=== PATIENT | female | born 1935 | race Two or more races ===

== ENCOUNTER 2017-06-23 06:56 | Outpatient (CLI) | payer OTHER ==
[~2017-06-23 06:56] MED LIST: ATARAX25 MG PO; CARDIZEM120 MG PO; ECZEMA ANTI-I28.3 GM TP; MEDROLPACK PO; PAXIL40 MG PO; SIMVASTATIN40 MG PO
== END 2017-06-23 08:18 | disposition home or self-care (01) ==
LOC: LAB 06:56
DX: E03.8 Other specified hypothyroidism (principal); E78.2 Mixed hyperlipidemia; I11.9 Hypertensive heart disease without heart failure; E56.8 Deficiency of other vitamins; N39.0 Urinary tract infection, site not specified; Z12.11 Encounter for screening for malignant neoplasm of colon; E55.9 Vitamin D deficiency, unspecified; E11.9 Type 2 diabetes mellitus without complications

== ENCOUNTER 2017-08-28 11:55 | Emergency (ER) | payer OTHER ==
[~2017-08-28] VITALS: Ht 160 cm; Wt 68.9 kg
== END 2017-08-28 13:47 | disposition home or self-care (01) ==
LOC: ER 11:55
DX: R20.0 Anesthesia of skin (principal)

== ENCOUNTER 2017-09-08 10:12 | Outpatient (CLI) | payer OTHER | END 2017-09-08 11:00 | disposition home or self-care (01) | LOC: NUCLEAR 10:12 | DX: I49.8 Other specified cardiac arrhythmias (principal); I11.9 Hypertensive heart disease without heart failure; I68.2 Cerebral arteritis in other diseases classified elsewhere ==

== ENCOUNTER 2017-09-09 14:09 | Outpatient (CLI) | payer OTHER | END 2017-09-09 16:01 | disposition home or self-care (01) | LOC: NUCLEAR 14:09 | DX: I65.23 Occlusion and stenosis of bilateral carotid arteries (principal) ==

== ENCOUNTER 2017-10-05 15:06 | Emergency (ER) | payer OTHER ==
[~2017-10-05] VITALS: Ht 157.5 cm; Wt 73.5 kg
[2017-10-05] MEDS ORDERED: SYNTHROID50 MCG (15:29)
== END 2017-10-05 17:38 | disposition home or self-care (01) ==
LOC: ER 15:06
DX: J45.998 Other asthma (principal); J06.9 Acute upper respiratory infection, unspecified; J11.1 Influenza due to unidentified influenza virus with other respiratory manifestations

== ENCOUNTER 2017-11-01 07:20 | Outpatient (CLI) | payer OTHER ==
[~2017-11-01 07:20] MED LIST changes: +SYNTHROID50 MCG
== END 2017-11-01 08:00 | disposition home or self-care (01) ==
LOC: NUCLEAR 07:20
DX: I11.9 Hypertensive heart disease without heart failure (principal); I25.10 Atherosclerotic heart disease of native coronary artery without angina pectoris
CPT/HCPCS: 78452; 93017; A9500; J0153

== ENCOUNTER 2017-12-30 08:49 | Inpatient (IN) | payer OTHER ==
[~2017-12-30] VITALS: Ht 157.5 cm; Wt 72.6 kg
[2018-01-04] MEDS ORDERED: CIPRO500 MG PO (12:44)
[2018-01-04] MEDS ORDERED: PAXIL40 MG PO (12:44)
[2018-01-04] MEDS ORDERED: SYNTHROID50 MCG PO (12:44)
[2018-01-04] MEDS ORDERED: INTESTINEX680 M1 PO (12:44)
[2018-01-04] MEDS ORDERED: PEPCID20 MG PO (12:44)
[2018-01-04] MEDS ORDERED: CARDIZEM120 MG PO (12:44)
[2018-01-04] MEDS ORDERED: SIMVASTATIN40 MG PO (12:44)
[2018-01-04] MEDS ORDERED: FLAGYL500MG PO (12:44)
[2018-01-04] MEDS ORDERED: PROPRANOLOL HCL10 MG PO (12:44)
== END 2018-01-04 15:54 | disposition home or self-care (01) | DRG 378 ==
LOC: ER 08:49 → SEC-K 14:35 → SURH 22:27 → SEC-K 22:32 → SURH 12-31 18:21
PROC: BW20ZZZ Computerized Tomography (CT Scan) of Abdomen (ICD-10-PCS; principal; 2017-12-30)
DX: K62.5 Hemorrhage of anus and rectum (principal); K57.32 Diverticulitis of large intestine without perforation or abscess without bleeding; K52.89 Other specified noninfective gastroenteritis and colitis; B96.29 Other Escherichia coli [E. coli] as the cause of diseases classified elsewhere; E03.8 Other specified hypothyroidism; I11.9 Hypertensive heart disease without heart failure; E78.49 Other hyperlipidemia; K44.9 Diaphragmatic hernia without obstruction or gangrene; G25.0 Essential tremor; E78.00 Pure hypercholesterolemia, unspecified; F32.9 Major depressive disorder, single episode, unspecified; Z90.49 Acquired absence of other specified parts of digestive tract

== ENCOUNTER 2018-04-20 07:13 | Outpatient (CLI) | payer OTHER ==
[~2018-04-20 07:13] MED LIST changes: +CIPRO500 MG PO; +FLAGYL500MG PO; +INTESTINEX680 M1 PO; +PEPCID20 MG PO; +PROPRANOLOL HCL10 MG PO; +SYNTHROID50 MCG PO
== END 2018-04-20 16:02 | disposition home or self-care (01) ==
LOC: LAB 07:13
DX: D50.8 Other iron deficiency anemias (principal); E03.8 Other specified hypothyroidism; E78.2 Mixed hyperlipidemia; I11.9 Hypertensive heart disease without heart failure; E56.8 Deficiency of other vitamins; N39.0 Urinary tract infection, site not specified; Z12.11 Encounter for screening for malignant neoplasm of colon; R19.5 Other fecal abnormalities; E55.9 Vitamin D deficiency, unspecified; N19 Unspecified kidney failure; E11.9 Type 2 diabetes mellitus without complications; R80.8 Other proteinuria; C18.0 Malignant neoplasm of cecum; B99.8 Other infectious disease

== ENCOUNTER 2018-08-14 06:46 | Outpatient (CLI) | payer OTHER | END 2018-08-14 07:03 | disposition home or self-care (01) | LOC: LAB 06:46 | DX: E03.8 Other specified hypothyroidism (principal); D50.8 Other iron deficiency anemias; E78.2 Mixed hyperlipidemia; I11.9 Hypertensive heart disease without heart failure; E56.8 Deficiency of other vitamins; N39.0 Urinary tract infection, site not specified; Z12.11 Encounter for screening for malignant neoplasm of colon; E55.9 Vitamin D deficiency, unspecified; N19 Unspecified kidney failure; E11.9 Type 2 diabetes mellitus without complications; R80.8 Other proteinuria; C18.0 Malignant neoplasm of cecum; K92.1 Melena ==

== ENCOUNTER 2018-09-08 11:22 | Outpatient (CLI) | payer OTHER | END 2018-09-08 11:30 | disposition home or self-care (01) | LOC: LAB 11:22 | DX: E53.8 Deficiency of other specified B group vitamins (principal) ==

== ENCOUNTER 2018-09-18 10:02 | Emergency (ER) | payer OTHER ==
[~2018-09-18] VITALS: Ht 160 cm; Wt 77.1 kg
[2018-09-18] MEDS ORDERED: ATIVAN1 M1 PO (10:16)
== END 2018-09-18 14:34 | disposition home or self-care (01) ==
LOC: ER 10:02
DX: S00.12XA Contusion of left eyelid and periocular area, initial encounter (principal); S00.83XA Contusion of other part of head, initial encounter; W01.198A Fall on same level from slipping, tripping and stumbling with subsequent striking against other object, initial encounter; Y93.89 Activity, other specified; Y92.012 Bathroom of single-family (private) house as the place of occurrence of the external cause; Y99.8 Other external cause status

== ENCOUNTER 2018-11-28 07:37 | Outpatient (CLI) | payer OTHER ==
[~2018-11-28 07:37] MED LIST changes: +ATIVAN1 M1 PO
== END 2018-11-28 07:47 | disposition home or self-care (01) ==
LOC: LAB 07:37
DX: D50.8 Other iron deficiency anemias (principal); E03.8 Other specified hypothyroidism; E78.2 Mixed hyperlipidemia; I11.9 Hypertensive heart disease without heart failure; E56.8 Deficiency of other vitamins; N39.0 Urinary tract infection, site not specified; Z12.11 Encounter for screening for malignant neoplasm of colon; E55.9 Vitamin D deficiency, unspecified; N19 Unspecified kidney failure; E11.9 Type 2 diabetes mellitus without complications; R80.8 Other proteinuria; C18.0 Malignant neoplasm of cecum; K92.1 Melena

== ENCOUNTER → 2019-02-06 12:36 | Outpatient (CLI) | payer OTHER | END | disposition home or self-care (01) | LOC: LAB 12:36 | DX: J11.1 Influenza due to unidentified influenza virus with other respiratory manifestations (principal) ==

== ENCOUNTER 2019-03-02 07:20 | Outpatient (CLI) | payer OTHER | END 2019-03-02 07:28 | disposition home or self-care (01) | LOC: LAB 07:20 | DX: D50.8 Other iron deficiency anemias (principal); E03.8 Other specified hypothyroidism; E78.2 Mixed hyperlipidemia; I11.9 Hypertensive heart disease without heart failure; E56.8 Deficiency of other vitamins; N39.0 Urinary tract infection, site not specified; Z12.11 Encounter for screening for malignant neoplasm of colon; E55.9 Vitamin D deficiency, unspecified; N19 Unspecified kidney failure; E11.9 Type 2 diabetes mellitus without complications; R80.8 Other proteinuria; C18.0 Malignant neoplasm of cecum; K92.1 Melena ==

== ENCOUNTER 2019-06-07 08:01 | Outpatient (CLI) | payer OTHER | END 2019-06-07 15:00 | disposition home or self-care (01) | LOC: LAB 08:01 | DX: D50.8 Other iron deficiency anemias (principal); E03.8 Other specified hypothyroidism; E78.2 Mixed hyperlipidemia; I11.9 Hypertensive heart disease without heart failure; E56.8 Deficiency of other vitamins; N39.0 Urinary tract infection, site not specified; Z12.11 Encounter for screening for malignant neoplasm of colon; E55.9 Vitamin D deficiency, unspecified; N19 Unspecified kidney failure; E11.9 Type 2 diabetes mellitus without complications; R80.8 Other proteinuria; C18.0 Malignant neoplasm of cecum; K92.1 Melena ==

== ENCOUNTER 2019-06-08 10:55 | Outpatient (CLI) | payer OTHER | END 2019-06-08 11:04 | disposition home or self-care (01) | LOC: LAB 10:55 | DX: D50.8 Other iron deficiency anemias (principal); E03.8 Other specified hypothyroidism; E78.2 Mixed hyperlipidemia; I11.9 Hypertensive heart disease without heart failure; E56.8 Deficiency of other vitamins; N39.0 Urinary tract infection, site not specified; Z12.11 Encounter for screening for malignant neoplasm of colon; E55.9 Vitamin D deficiency, unspecified; N19 Unspecified kidney failure; E11.9 Type 2 diabetes mellitus without complications; R80.8 Other proteinuria; C18.0 Malignant neoplasm of cecum; K92.1 Melena ==

== ENCOUNTER 2019-07-06 10:39 | Emergency (ER) | payer OTHER ==
[~2019-07-06] VITALS: Ht 160 cm; Wt 72.6 kg
[2019-07-06] MEDS ORDERED: ASA81 MG (10:58)
[2019-07-06] MEDS ORDERED: PAXIL40 MG PO (10:59)
== END 2019-07-06 17:07 | disposition home or self-care (01) ==
LOC: ER 10:39
DX: R19.5 Other fecal abnormalities (principal); K57.30 Diverticulosis of large intestine without perforation or abscess without bleeding; N20.0 Calculus of kidney; R53.1 Weakness; F41.8 Other specified anxiety disorders

== ENCOUNTER → 2019-08-24 08:25 | Outpatient (CLI) | payer OTHER ==
[~2019-08-24 08:25] MED LIST changes: +ASA81 MG
== END | disposition home or self-care (01) ==
LOC: LAB 08:25
DX: G31.84 Mild cognitive impairment of uncertain or unknown etiology (principal)

== ENCOUNTER 2019-09-03 08:57 | Inpatient (IN) | payer OTHER ==
[~2019-09-03] VITALS: Ht 160 cm; Wt 70.3 kg
[2019-09-05] MEDS ORDERED: CARDIZEM120 MG PO (18:14)
[2019-09-05] MEDS ORDERED: POM (MEDICAMENTO EN PO (18:14)
[2019-09-05] MEDS ORDERED: FLAGYL500MG PO (18:14)
[2019-09-05] MEDS ORDERED: CIPRO500 MG PO (18:14)
[2019-09-05] MEDS ORDERED: PAXIL40 MG PO (18:14)
[2019-09-05] MEDS ORDERED: PEPCID AC20 MG PO (18:14)
[2019-09-05] MEDS ORDERED: SINEMET 25-1001 EACH PO (18:14)
[2019-09-05] MEDS ORDERED: SYNTHROID50 MCG PO (18:14)
[2019-09-05] MEDS ORDERED: INTESTINEX680 M2 PO (18:14)
[2019-09-05] MEDS ORDERED: TAMS0.4C PO (18:19)
== END 2019-09-05 18:31 | disposition home or self-care (01) | DRG 389 ==
LOC: ER 08:57 → SEC-K 15:16 → SURH 18:55
PROVIDERS: ADMIT Internal Medicine Geriatric Medicine; ATTEND Internal Medicine Geriatric Medicine
PROC: BW21ZZZ Computerized Tomography (CT Scan) of Abdomen and Pelvis (ICD-10-PCS; principal; 2019-09-03)
DX: K56.0 Paralytic ileus (principal); N20.1 Calculus of ureter; E86.0 Dehydration; N20.0 Calculus of kidney; F32.9 Major depressive disorder, single episode, unspecified; E03.8 Other specified hypothyroidism; E78.5 Hyperlipidemia, unspecified; G20 Parkinson's disease; I10 Essential (primary) hypertension

== ENCOUNTER 2019-09-24 09:45 | Day surgery (SDC) | payer OTHER ==
[~2019-09-24 09:45] MED LIST changes: +ARICEPT10 MG PO; +CARDIZEM; +ESTAZOLAM2 MG PO; +INTESTINEX680 M2 PO; +PEPCID AC20 MG PO; +POM (MEDICAMENTO EN PO; +SINEMET 25-1001 EACH PO; +TAMS0.4C PO
== END 2019-09-24 16:45 | disposition home or self-care (01) ==
LOC: CIR.AMB 09:45
PROVIDERS: ATTEND Urology
DX: N20.1 Calculus of ureter (principal); Z20.828 Contact with and (suspected) exposure to other viral communicable diseases

== ENCOUNTER 2019-10-03 10:26 | Outpatient (CLI) | payer OTHER | END 2019-10-03 10:40 | disposition home or self-care (01) | LOC: MRI 10:26 | PROVIDERS: ATTEND Psychiatry & Neurology Neurology | DX: G20 Parkinson's disease (principal); I10 Essential (primary) hypertension; G31.84 Mild cognitive impairment of uncertain or unknown etiology | CPT/HCPCS: 70551 ==

== ENCOUNTER 2019-10-10 07:19 | Outpatient (CLI) | payer OTHER | END 2019-10-10 07:31 | disposition home or self-care (01) | LOC: LAB 07:19 | PROVIDERS: ATTEND Internal Medicine Geriatric Medicine | DX: D50.8 Other iron deficiency anemias (principal); E03.8 Other specified hypothyroidism; E78.2 Mixed hyperlipidemia; I11.9 Hypertensive heart disease without heart failure; E56.8 Deficiency of other vitamins; N39.0 Urinary tract infection, site not specified; Z12.11 Encounter for screening for malignant neoplasm of colon; E55.9 Vitamin D deficiency, unspecified; N19 Unspecified kidney failure; E11.9 Type 2 diabetes mellitus without complications; R80.8 Other proteinuria; C18.0 Malignant neoplasm of cecum; K92.1 Melena ==

== ENCOUNTER → 2019-10-13 07:13 | Outpatient (CLI) | payer OTHER | END | disposition home or self-care (01) | LOC: LAB 07:13 | PROVIDERS: ATTEND Internal Medicine Geriatric Medicine | DX: D50.8 Other iron deficiency anemias (principal); E03.8 Other specified hypothyroidism; E78.2 Mixed hyperlipidemia; I11.9 Hypertensive heart disease without heart failure; E56.8 Deficiency of other vitamins; N39.0 Urinary tract infection, site not specified; Z12.11 Encounter for screening for malignant neoplasm of colon; E55.9 Vitamin D deficiency, unspecified; N19 Unspecified kidney failure; E11.9 Type 2 diabetes mellitus without complications; R80.8 Other proteinuria; C18.0 Malignant neoplasm of cecum; K92.1 Melena ==

== ENCOUNTER 2020-01-03 08:26 | Outpatient (CLI) | payer OTHER | END 2020-01-03 08:39 | disposition home or self-care (01) | LOC: LAB 08:26 | PROVIDERS: ATTEND Internal Medicine Geriatric Medicine | DX: D50.8 Other iron deficiency anemias (principal); E03.8 Other specified hypothyroidism; E78.2 Mixed hyperlipidemia; I11.9 Hypertensive heart disease without heart failure; E56.8 Deficiency of other vitamins; N39.0 Urinary tract infection, site not specified; Z12.11 Encounter for screening for malignant neoplasm of colon; E55.9 Vitamin D deficiency, unspecified; N19 Unspecified kidney failure; K92.1 Melena; C18.0 Malignant neoplasm of cecum; R80.8 Other proteinuria; E11.9 Type 2 diabetes mellitus without complications ==

== ENCOUNTER 2020-03-10 08:47 | Outpatient (CLI) | payer OTHER | END 2020-03-10 08:58 | disposition home or self-care (01) | LOC: LAB 08:47 | PROVIDERS: ATTEND Psychiatry & Neurology Neurology | DX: E03.8 Other specified hypothyroidism (principal); M06.4 Inflammatory polyarthropathy; G21.4 Vascular parkinsonism; I63.81 Other cerebral infarction due to occlusion or stenosis of small artery; E11.9 Type 2 diabetes mellitus without complications; E53.8 Deficiency of other specified B group vitamins; E78.1 Pure hyperglyceridemia; E58 Dietary calcium deficiency ==

== ENCOUNTER 2020-03-18 09:43 | Outpatient (CLI) | payer OTHER | END 2020-03-18 09:59 | disposition home or self-care (01) | LOC: TOM 09:43 | PROVIDERS: ATTEND Psychiatry & Neurology Neurology | DX: R41.89 Other symptoms and signs involving cognitive functions and awareness (principal); G21.4 Vascular parkinsonism; R44.1 Visual hallucinations ==

== ENCOUNTER 2020-05-02 07:37 | Outpatient (CLI) | payer OTHER | END 2020-05-02 07:41 | disposition home or self-care (01) | LOC: LAB 07:37 | PROVIDERS: ATTEND Internal Medicine Geriatric Medicine | DX: D50.8 Other iron deficiency anemias (principal); E03.8 Other specified hypothyroidism; E78.2 Mixed hyperlipidemia; I11.9 Hypertensive heart disease without heart failure; E56.8 Deficiency of other vitamins; N39.0 Urinary tract infection, site not specified; Z12.11 Encounter for screening for malignant neoplasm of colon; E55.9 Vitamin D deficiency, unspecified; N19 Unspecified kidney failure; E11.9 Type 2 diabetes mellitus without complications; R80.8 Other proteinuria; C18.0 Malignant neoplasm of cecum; K92.1 Melena ==

== ENCOUNTER 2020-05-14 08:27 | Outpatient (CLI) | payer OTHER | END 2020-05-14 08:33 | disposition home or self-care (01) | LOC: LAB 08:27 | PROVIDERS: ATTEND Internal Medicine Geriatric Medicine | DX: E03.8 Other specified hypothyroidism (principal) ==

== ENCOUNTER 2020-06-12 11:07 | Outpatient (CLI) | payer OTHER | END 2020-06-12 11:27 | disposition home or self-care (01) | LOC: MRI 11:07 | PROVIDERS: ATTEND Psychiatry & Neurology Neurology | DX: G21.4 Vascular parkinsonism (principal); I63.81 Other cerebral infarction due to occlusion or stenosis of small artery | CPT/HCPCS: 70551 ==

== ENCOUNTER → 2020-11-04 07:43 | Outpatient (CLI) | payer OTHER | END | disposition home or self-care (01) | LOC: LAB 07:43 | PROVIDERS: ATTEND Internal Medicine Geriatric Medicine | DX: E03.8 Other specified hypothyroidism (principal); D50.8 Other iron deficiency anemias; E78.2 Mixed hyperlipidemia; I11.9 Hypertensive heart disease without heart failure; E56.8 Deficiency of other vitamins; N39.0 Urinary tract infection, site not specified; Z12.11 Encounter for screening for malignant neoplasm of colon; E55.9 Vitamin D deficiency, unspecified; N19 Unspecified kidney failure; E11.9 Type 2 diabetes mellitus without complications; R80.8 Other proteinuria; C18.0 Malignant neoplasm of cecum; K92.1 Melena ==

== ENCOUNTER 2021-02-02 08:15 | Outpatient (CLI) | payer OTHER | END 2021-02-02 08:16 | disposition home or self-care (01) | LOC: LAB 08:15 | PROVIDERS: ATTEND Internal Medicine Geriatric Medicine | DX: D50.8 Other iron deficiency anemias (principal); E03.8 Other specified hypothyroidism; E78.2 Mixed hyperlipidemia; I11.9 Hypertensive heart disease without heart failure; E56.8 Deficiency of other vitamins; N39.0 Urinary tract infection, site not specified; Z12.11 Encounter for screening for malignant neoplasm of colon; R19.5 Other fecal abnormalities; E55.9 Vitamin D deficiency, unspecified; N19 Unspecified kidney failure; E11.9 Type 2 diabetes mellitus without complications; C18.0 Malignant neoplasm of cecum ==

== ENCOUNTER 2021-03-06 13:14 | Emergency (ER) | payer OTHER ==
[~2021-03-06] VITALS: Ht 167.6 cm; Wt 61.7 kg
== END 2021-03-06 17:30 | disposition home or self-care (01) ==
LOC: ER 13:14
DX: S00.83XA Contusion of other part of head, initial encounter (principal); R55 Syncope and collapse; R42 Dizziness and giddiness; G20 Parkinson's disease; W18.09XA Striking against other object with subsequent fall, initial encounter; Y93.89 Activity, other specified; Y92.018 Other place in single-family (private) house as the place of occurrence of the external cause; Y99.8 Other external cause status

== ENCOUNTER 2021-03-30 10:32 | Inpatient (IN) | payer OTHER ==
[~2021-03-30] VITALS: Ht 160 cm; Wt 70.3 kg
[2021-03-30] MEDS ORDERED: RISPERDAL3 MG PO (10:49)
[2021-03-30] MEDS ORDERED: ACID REDUCER20 M1 PO (10:50)
[2021-03-31] MEDS ORDERED: CARDIZEM30 MG (10:40)
[2021-04-03] MEDS ORDERED: CARTIA XT240 MG PO (13:27)
[2021-04-03] MEDS ORDERED: ATIVAN1 M1 PO (13:27)
[2021-04-03] MEDS ORDERED: ASA81 MG PO (13:27)
[2021-04-03] MEDS ORDERED: PAXIL40 MG PO (13:27)
[2021-04-03] MEDS ORDERED: CARBIDOPA-LEVO1 EA11 PO (13:27)
[2021-04-03] MEDS ORDERED: RISPERDAL3 MG PO (13:27)
[2021-04-03] MEDS ORDERED: SYNTHROID50 MCG PO (13:27)
[2021-04-03] MEDS ORDERED: ACID REDUCER20 M1 PO (13:27)
[2021-04-03] MEDS ORDERED: SIMVASTATIN40 MG PO (13:27)
[2021-04-03] MEDS ORDERED: MELATONIN5 M2 PO (13:27)
== END 2021-04-03 14:04 | disposition home or self-care (01) | DRG 690 ==
LOC: ER 10:32 → SEC-K 18:24 → MEDI 18:24
PROVIDERS: ADMIT Internal Medicine Geriatric Medicine; ATTEND Internal Medicine Geriatric Medicine
PROC: B24BZZZ Ultrasonography of Heart with Aorta (ICD-10-PCS; principal; 2021-03-30)
PROC: 4A12X4Z Monitoring of Cardiac Electrical Activity, External Approach (ICD-10-PCS; 2021-03-31)
DX: N39.0 Urinary tract infection, site not specified (principal); E86.0 Dehydration; E87.8 Other disorders of electrolyte and fluid balance, not elsewhere classified; I48.91 Unspecified atrial fibrillation; R00.0 Tachycardia, unspecified; I10 Essential (primary) hypertension; E03.8 Other specified hypothyroidism; E78.49 Other hyperlipidemia; R63.0 Anorexia; G20 Parkinson's disease; R53.81 Other malaise; F32.9 Major depressive disorder, single episode, unspecified; Z20.822 Contact with and (suspected) exposure to COVID-19; F03.90 Unspecified dementia, unspecified severity, without behavioral disturbance, psychotic disturbance, mood disturbance, and anxiety

== ENCOUNTER 2021-07-31 10:33 | Inpatient (IN) | payer OTHER ==
[~2021-07-31] VITALS: Ht 154.9 cm; Wt 72.6 kg
[~2021-07-31 10:33] MED LIST changes: +ACID REDUCER20 M1 PO; +ASA81 MG PO; +CARBIDOPA-LEVO1 EA11 PO; +CARDIZEM30 MG; +CARTIA XT240 MG PO; +MELATONIN5 M2 PO; +RISPERDAL3 MG PO
[2021-08-03] MEDS ORDERED: OMEPRAZOLE20 MG (08:02)
[2021-08-03] MEDS ORDERED: METOPROLOL SUCC25 MG (08:02)
[2021-08-03] MEDS ORDERED: CATAPRES-TTS 31 EACH TD (15:00)
[2021-08-03] MEDS ORDERED: LORAZEPAM I2 MG/1 ML PO (15:01)
[2021-08-03] MEDS ORDERED: NEUPRO1 EAC4 TOP (15:06)
== END 2021-08-03 19:12 | disposition home or self-care (01) | DRG 65 ==
LOC: ER 10:33 → MEDI 15:47
PROVIDERS: ADMIT Internal Medicine Geriatric Medicine; ATTEND Internal Medicine Geriatric Medicine
PROC: BW28ZZZ Computerized Tomography (CT Scan) of Head (ICD-10-PCS; principal; 2021-07-31)
PROC: 3E10X8Z Irrigation of Skin and Mucous Membranes using Irrigating Substance (ICD-10-PCS; 2021-08-01)
DX: I60.6 Nontraumatic subarachnoid hemorrhage from other intracranial arteries (principal); G40.89 Other seizures; F02.80 Dementia in other diseases classified elsewhere, unspecified severity, without behavioral disturbance, psychotic disturbance, mood disturbance, and anxiety; E03.8 Other specified hypothyroidism; E78.49 Other hyperlipidemia; R13.19 Other dysphagia; L89.151 Pressure ulcer of sacral region, stage 1; G20 Parkinson's disease; G30.8 Other Alzheimer's disease; Z74.01 Bed confinement status; Z20.822 Contact with and (suspected) exposure to COVID-19